=== PATIENT | female | born 1975 | race Caucasian/White ===

== ENCOUNTER 2021-06-28 06:58 | Day surgery (SDC) | payer BC ==
[2021-06-28] MEDS ORDERED: Depo-Medrol 40 MG/ML IM ONE (06:59)
[2021-06-28] MEDS ORDERED: BUPIVACAINE 0.5% VIAL IJ ONE (06:59)
[2021-06-28] MEDS ORDERED: DIPRIVAN 200 MG/20 ML IV ONE (09:02)
--- NOTE | 2021-06-28 10:00 | XRAY ---
Indication: Bilateral SI joint injection. Intraoperative fluoroscopy provided for 26 seconds. 2 lateral digital spot images submitted for interpretation demonstrates posterior needle tips projecting mid sacrum. Correlate with intraoperative findings/report.
[2021-06-28] MEDS ORDERED: Lactated Ringers 1,000 ML IV ONE (10:01)
--- NOTE | 2021-06-28 10:56 | XRAY ---
23 seconds fluoroscopy time in surgery for bilateral SI joint injections.
== END 2021-06-28 09:28 | disposition home or self-care (01) ==
LOC: SDC-PAIN 06:58
PROVIDERS: ATTEND Psychiatry & Neurology Pain Medicine
DX: M46.1 Sacroiliitis, not elsewhere classified (principal); E11.9 Type 2 diabetes mellitus without complications; Z79.899 Other long term (current) drug therapy
CPT/HCPCS: 27096; 72202; 77002; 82947; 84703; J1030; J2704; G0260

== ENCOUNTER 2021-07-05 07:24 | Day surgery (SDC) | payer BC ==
[2021-07-05] MEDS ORDERED: Depo-Medrol 40 MG/ML IM ONE (07:25)
[2021-07-05] MEDS ORDERED: BUPIVACAINE 0.5% VIAL IJ ONE (07:25)
[2021-07-05] MEDS ORDERED: Lactated Ringers 1,000 ML IV ONE (08:46)
[2021-07-05] MEDS ORDERED: DIPRIVAN 200 MG/20 ML IV ONE (08:50)
--- NOTE | 2021-07-05 10:06 | XRAY ---
Indication: Left knee injection. Intraoperative fluoroscopy provided for 3 seconds. Single digital spot image submitted for interpretation demonstrates needle tip projecting over the left femur intercondylar notch. Small amount of contrast injected for needle tip placement. Correlate with intraoperative findings/report.
--- NOTE | 2021-07-05 10:16 | XRAY ---
Indication: Right knee injection. Intraoperative fluoroscopy provided for 9 seconds. Single digital spot image submitted for interpretation demonstrates needle tip projecting over the right femur intercondylar notch. Small amount of contrast injected for needle tip placement. Correlate with intraoperative findings/report.
--- NOTE | 2021-07-05 11:03 | XRAY ---
9 seconds of fluoroscopy was used in surgery for a right intra-articular knee injection.
--- NOTE | 2021-07-05 11:03 | XRAY ---
3 seconds of fluoroscopy was used in surgery for a left intra-articular knee injection.
== END 2021-07-05 09:15 | disposition home or self-care (01) ==
LOC: SDC-PAIN 07:24
PROVIDERS: ATTEND Psychiatry & Neurology Pain Medicine
DX: M17.0 Bilateral primary osteoarthritis of knee (principal); E11.9 Type 2 diabetes mellitus without complications; Z79.899 Other long term (current) drug therapy
CPT/HCPCS: 20610; 73560; 77002; 82947; 84703; J1030; J2704; Q9966